=== PATIENT | female | born 1970 | race Caucasian/White ===

== ENCOUNTER → 2020-06-26 | Outpatient (CLI) | payer MEDICARE ==
[~2020-06-26] MED LIST: AZELASTINE; CEPH500 PO; CHLO25 PO; COMPAZINE10 MG PO; FAMO20 PO; MOTION RELIEF25 MG PO; ONDA4ODT MM; OXYC5 PO; PHENERGAN25 MG PR; POTA10T PO; RANI150EL PO; Roxicodone5 MG PO; ZYRTEC10 MG PO
[2020-06-27 00:32] LABS: Adenovirus F 40/41 Not Detected (NOT DETECT); Astrovirus Not Detected (NOT DETECT); Campylobacter Sp Not Detected (NOT DETECT); Cryptosporidium Not Detected (NOT DETECT); Cyclospora Cayetanensis Not Detected (NOT DETECT); E. Coli O157 Not Detected (NOT DETECT); Entamoeba Histolytica Not Detected (NOT DETECT); Enteroaggregative E. coli-EAEC Not Detected (NOT DETECT); Enteropathogenic E. coli-EPEC Not Detected (NOT DETECT); Enterotoxigenic E. coli-ETEC Not Detected (NOT DETECT); Giardia Lamblia Not Detected (NOT DETECT); Norovirus GI/GII Not Detected (NOT DETECT); Plesiomonas Shigelloides Not Detected (NOT DETECT); Rotavirus A Not Detected (NOT DETECT); Salmonella Sp Not Detected (NOT DETECT); Sapovirus Not Detected (NOT DETECT); Shiga Toxin-prod E. coli-STEC Not Detected (NOT DETECT); Shigella/Enteroin E. coli-EIEC Not Detected (NOT DETECT); Vibrio Cholerae Not Detected (NOT DETECT); Vibrio Sp Not Detected (NOT DETECT); Yersinia Enterocolitica Not Detected (NOT DETECT)
== END | disposition home or self-care (01) ==
LOC: LAB 09:50 → LAB SHORT 09:50 → LAB FUT 06-24 17:15
PROVIDERS: Family Medicine
DX: R11.2 Nausea with vomiting, unspecified (principal); R19.7 Diarrhea, unspecified
CPT/HCPCS: 0097U

== ENCOUNTER 2020-07-17 18:38 | Inpatient (IN) | payer MEDICARE, OTHER ==
[~2020-07-17] VITALS: Ht 175.3 cm; Wt 68.0 kg
[~2020-07-17 18:38] MED LIST changes: -AZELASTINE; -FAMO20 PO; -MOTION RELIEF25 MG PO; -ONDA4ODT MM; -OXYC5 PO; -PHENERGAN25 MG PR; -POTA10T PO; -RANI150EL PO; -ZYRTEC10 MG PO
[2020-07-17 19:45] LABS: Alanine Aminotransfer (ALT/SGP 44 U/L (12-78); Albumin, Blood 3.6 g/dL (3.4-5.0); Albumin/Globulin Ratio 0.7 (0.8-1.8); Alk Phos 94 U/L (50-136); Anion Gap 12 mmol/L (6-16); Aspartate Aminotrans (AST/SGOT 68 U/L (12-37); Bilirubin, Total 1.2 mg/dL (0.1-1.0); Blood Urea Nitrogen 12 mg/dL (8-24); Bun/Creatinine Ratio 30.5 (12.0-20.0); CO2, Blood 29 mmol/L (21-32); Calcium, Blood 9.7 mg/dL (8.5-10.1); Chloride, Blood 96 mmol/L (98-108); Creatinine, Blood 0.39 mg/dL (0.40-1.00); Globulin, Blood 5.1 g/dL (2.2-4.0); Glomerular Filtration Rate >60 (60-); Glucose, Blood 155 mg/dL (70-99); Potassium, Blood 3.1 mmol/L (3.5-5.5); Sodium, Blood 137 mmol/L (136-145); Total Protein, Blood 8.7 g/dL (6.4-8.2)
[2020-07-17 19:47] LABS: Magnesium, Blood 2.1 mg/dL (1.6-2.4); Phosphorus, Blood 2.5 mg/dL (2.5-4.9)
[2020-07-17 20:00] LABS: BASOPHILS ABSOLUTE AUTO 0.05 K/mm3 (0.00-0.23); BASOPHILS PERCENT AUTO 1 % (0-2); EOSINOPHILS PERCENT AUTO 1 % (0-6); Hematocrit 42.6 % (33.0-51.0); Hemoglobin 14.4 g/dL (11.5-16.0); IMMATURE GRAN ABSOLUTE AUTO 0.06 K/mm3 (0.00-0.10); IMMATURE GRAN PERCENT AUTO 1 % (0-1); LYMPHOCYTES ABSOLUTE AUTO 2.47 K/mm3 (0.84-5.20); LYMPHOCYTES PERCENT AUTO 23 % (21-46); MONOCYTES ABSOLUTE AUTO 0.93 K/mm3 (0.16-1.47); MONOCYTES PERCENT AUTO 9 % (4-13); Mean Corpuscular HGB 33.5 pg (26.0-34.0); Mean Corpuscular HGB Conc 33.8 g/dL (31.5-36.5); Mean Corpuscular Volume 99 fL (80-100); Mean Platelet Volume 12.5 fL (9.1-12.4); NEUTROPHILS ABSOLUTE AUTO 7.11 K/mm3 (1.96-9.15); NEUTROPHILS PERCENT AUTO 66 % (41-73); NRBC ABSOLUTE 0.02 K/mm3 (0.00-0.02); NRBC Auto 0.2 /100 WBC (0.0-0.2); Platelet Count 364 K/mm3 (150-400); RDW Coefficient Variation 13.4 % (11.7-14.2); RDW Standard Deviation 48.7 fL (35.1-46.3); White Blood Cell Count 10.72 K/mm3 (4.00-11.30)
[2020-07-17 21:09] LABS: Source, Urine Clean Catch
[2020-07-17 21:16] LABS: Blood, Urine 1+ (Neg); Glucose Qualitative, Urine Neg (Neg); Ketones, Urine 3+ (Neg); Leukocyte Esterase, Urine 1+ (Neg); Nitrite, Urine Neg (Neg); Protein, Urine 2+ (Neg); Urobilinogen, Urine 3+ (Normal)
[2020-07-17 21:33] LABS: Appearance, Urine Hazy (Clear); Bilirubin, Urine 2+ (Neg); Color, Urine Amber (P-Yellow)
[2020-07-17 21:34] LABS: Amorphous Light (0-Heavy); Bacteria Many /hpf; Mucus Light (0-Heavy); Red Blood Cells, Urine 0-2 /hpf (0-2); Squamous Epithelial Cells Many /hpf (Few)
[2020-07-17] MEDS ORDERED: PHENERGAN25 MG PR (22:12)
[2020-07-17] MEDS ORDERED: RANI150EL PO (22:12)
[2020-07-18 01:14] LABS: International Normalized Ratio 1.11; Prothrombin Time Results 11.8 Sec (9.7-11.5)
--- NOTE | 2020-07-18 06:39 | NUR ---
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 Alert and Oriented times two but a very poor historian regarding health history and even the name of her significant other. Pt. states generalized aches and pains all over but, all being tolerable overnight. Yarely says no vomiting or diarrhea today, but agrees her thought processes are really messed up. Still awaiting patient void to send 2nd UA. Admission assessment partially completed due to patients poor memory.
[2020-07-18 07:14] LABS: U Amphetamine Screen Not Detected; U Barbituate Screen Not Detected; U Benzodiazapine Screen DETECTED; U Buprenorphine Screen Not Detected; U Cannabinoids Screen Not Detected; U Cocaine Screen Not Detected; U Methadone Screen Not Detected; U Methamphetamine Screen Not Detected; U Opiates Screen Not Detected; U Oxycodone Screen Not Detected; U Phencyclidine Screen Not Detected; U Propoxyphene Screen Not Detected
[2020-07-18 08:47] LABS: BASOPHILS ABSOLUTE AUTO 0.05 K/mm3 (0.00-0.23); BASOPHILS PERCENT AUTO 1 % (0-2); EOSINOPHILS ABSOLUTE AUTO 0.14 K/mm3 (0.00-0.68); EOSINOPHILS PERCENT AUTO 2 % (0-6); Hematocrit 37.9 % (33.0-51.0); Hemoglobin 12.4 g/dL (11.5-16.0); IMMATURE GRAN ABSOLUTE AUTO 0.04 K/mm3 (0.00-0.10); IMMATURE GRAN PERCENT AUTO 1 % (0-1); LYMPHOCYTES ABSOLUTE AUTO 3.48 K/mm3 (0.84-5.20); LYMPHOCYTES PERCENT AUTO 42 % (21-46); MONOCYTES ABSOLUTE AUTO 0.86 K/mm3 (0.16-1.47); MONOCYTES PERCENT AUTO 10 % (4-13); Mean Corpuscular HGB 33.3 pg (26.0-34.0); Mean Corpuscular HGB Conc 32.7 g/dL (31.5-36.5); Mean Corpuscular Volume 102 fL (80-100); Mean Platelet Volume 12.4 fL (9.1-12.4); NEUTROPHILS ABSOLUTE AUTO 3.75 K/mm3 (1.96-9.15); NEUTROPHILS PERCENT AUTO 45 % (41-73); NRBC ABSOLUTE 0.02 K/mm3 (0.00-0.02); NRBC Auto 0.2 /100 WBC (0.0-0.2); Platelet Count 299 K/mm3 (150-400); RDW Coefficient Variation 13.5 % (11.7-14.2); Red Blood Cell Count 3.72 M/mm3 (3.80-5.20); White Blood Cell Count 8.32 K/mm3 (4.00-11.30)
[2020-07-18] MEDS ORDERED: ZYRTEC10 MG PO (09:04)
[2020-07-18] MEDS ORDERED: MOTION RELIEF25 MG PO (09:05)
[2020-07-18] MEDS ORDERED: AZELASTINE (09:07)
[2020-07-18] MEDS ORDERED: OXYC5 PO (09:09)
[2020-07-18 09:10] LABS: Alanine Aminotransfer (ALT/SGP 28 U/L (12-78); Albumin, Blood 2.9 g/dL (3.4-5.0); Albumin/Globulin Ratio 0.7 (0.8-1.8); Alk Phos 77 U/L (50-136); Anion Gap 7 mmol/L (6-16); Aspartate Aminotrans (AST/SGOT 38 U/L (12-37); Bilirubin, Total 0.5 mg/dL (0.1-1.0); Blood Urea Nitrogen 9 mg/dL (8-24); Bun/Creatinine Ratio 15.6 (12.0-20.0); CO2, Blood 33 mmol/L (21-32); Calcium, Blood 8.8 mg/dL (8.5-10.1); Chloride, Blood 101 mmol/L (98-108); Creatinine, Blood 0.58 mg/dL (0.40-1.00); Globulin, Blood 4.1 g/dL (2.2-4.0); Glomerular Filtration Rate >60 (60-); Glucose, Blood 116 mg/dL (70-99); Sodium, Blood 141 mmol/L (136-145)
[2020-07-18] MEDS ORDERED: ONDA4ODT MM (09:10)
[2020-07-18] MEDS ORDERED: FAMO20 PO (09:11)
[2020-07-18] MEDS ORDERED: CHLO25 PO (09:11)
[2020-07-18] MEDS ORDERED: POTA10T PO (09:12)
[2020-07-18 09:13] LABS: Potassium, Blood 2.3 mmol/L (3.5-5.5)
[2020-07-18 10:53] LABS: Source, Urine Clean Catch
[2020-07-18 11:12] LABS: Bilirubin, Urine Neg (Neg); Blood, Urine 1+ (Neg); Glucose Qualitative, Urine Neg (Neg); Ketones, Urine 1+ (Neg); Leukocyte Esterase, Urine Neg (Neg); Nitrite, Urine Neg (Neg); Protein, Urine 2+ (Neg); Urobilinogen, Urine 2+ (Normal)
[2020-07-18 11:13] LABS: Appearance, Urine Clear (Clear); Color, Urine Yellow (P-Yellow)
[2020-07-18 11:14] LABS: Bacteria Rare /hpf; Mucus Light (0-Heavy); Red Blood Cells, Urine 0-2 /hpf (0-2); Squamous Epithelial Cells Few /hpf (Few)
--- NOTE | 2020-07-18 11:42 | NUR ---
HER BOYFRIEND IS HERE SPEAKING WITH OVER THE PHONE. I HAVE NOTIFIED OF THE PATIENT'S DIZZINESS AND HER BALANCE PROBLEM. AN MRI HEAD HAS BEEN ORDERED. WHEN SHE NEEDED TO VOID EARLIER SHE USED THE BSC INSTEAD OF WALKING INTO THE BATHROOM D/T THE DIZZINESS AND POOR BALANCE.
--- NOTE | 2020-07-18 13:33 | NUR ---
HER MRI IS DONE. SHE IS EATING HER LUNCH. HER BOYFRIEND JOSHUA IS AT BEDSIDE. IV POTASSIUM REPLACEMENT IS INFUSING SLOW TO VEIN TOLERANCE. SHE SWALLOWED HER PO POTASSIUM IN HALVES WITH APPLESAUCE. I CALLED ON HIS CELL PHONE WITH THE CONSULTATION INFO. BUT PATIENT AND JOSHUA SAY SHE HASN'T HAD DYSPHAGIA. THEY CHANGED THE TEXTURE OF HER FOOD AT HOME BECAUSE SHE KEPT VOMITING. AND SINCE SHE WAS VOMITING SO CONSISTENTLY, SHE HASN'T BEEN WEARING HER TEETH.
--- NOTE | 2020-07-18 16:55 | NUR ---
HAS DECIDED TO COBRA TRANSFER THIS PATIENT TO NEUROLOGY AT [facility] IN [place]. RAPID COVID TEST OBTAINED. DOCTOR CAME BACK A 2ND TIME TO SPEAK WITH THE PATIENT AND HER SMelvin MERRITT
--- NOTE | 2020-07-18 18:07 | NUR ---
SHE IS EATING HER DINNER. COBRA TRANSFER TO TAKE PLACE SOON. [facility] WILL BE HERE ABOUT 1820. HER PACKET IS READY AND I CALLED REPORT TO ARABELLA RN ON THE NEURO UNIT. KCL IV REPLACEMENT FINISHED. I REPORTED TO ARABELLA THAT SHE WILL NEED A FOLLOW UP POTASSIUM LEVEL AFTER A 2.3 THIS AM. HER S.O. JOSHUA IS AT BEDSIDE. THERE IS A NOTE IN THE PACKET WITH HIS NAME AND NUMBER.
--- NOTE | 2020-07-18 18:35 | NUR ---
DISCHARGED TO [facility]. HER FEW BELONGINGS WENT WITH HER S.O. BUT SHE IS WEARING HER GLASSES.
== END 2020-07-18 18:28 | disposition short-term general hospital (02) | DRG 72 ==
LOC: ER 18:38 → ERHOLD 18:39 → MEDS 18:39
PROVIDERS: Physician Assistant; ADMIT Internal Medicine
DX: G93.40 Encephalopathy, unspecified (principal); I10 Essential (primary) hypertension; G35 Multiple sclerosis; F17.210 Nicotine dependence, cigarettes, uncomplicated; E86.0 Dehydration; E87.6 Hypokalemia; I16.0 Hypertensive urgency; R13.10 Dysphagia, unspecified
CPT/HCPCS: 36415; 70450; 70551; 71045; 80053; 81001; 82140; 83690; 83735; 84100; 85025; 85610; 87086; 96361; 96365; 96366; 96367; 96372; 96375; 99285-25; A9270; A9270-GY; G0378; J0696; J1650; J2405; J3480; J7030; U0002

== ENCOUNTER → 2021-07-28 | Outpatient (CLI) | payer MEDICARE, OTHER ==
[~2021-07-28] MED LIST changes: +AZELASTINE; +FAMO20 PO; +MOTION RELIEF25 MG PO; +ONDA4ODT MM; +OXYC5 PO; +PHENERGAN25 MG PR; +POTA10T PO; +RANI150EL PO; +ZYRTEC10 MG PO
== END ==
LOC: LAB SHORT 16:20 → LAB 16:20
DX: L08.9 Local infection of the skin and subcutaneous tissue, unspecified (principal); Z88.0 Allergy status to penicillin
CPT/HCPCS: 87070; 87077; 87147; 87186; 87205

== ENCOUNTER → 2021-10-08 | Outpatient (CLI) | payer MEDICARE, OTHER ==
[2021-10-14 14:10] LABS: CHLAMYDIA BY NAA Negative (Negative); GONOCOCCUS BY NAA Negative (Negative); HPV 16 Negative (Negative); HPV 18 Negative (Negative); HPV OTHER HR TYPES Positive (Negative); TRICH VAG BY NAA Negative (Negative)
== END ==
LOC: LAB SHORT 18:17
PROVIDERS: Nurse Practitioner Family
DX: Z01.419 Encounter for gynecological examination (general) (routine) without abnormal findings (principal)
CPT/HCPCS: 87491; 87591; 87624; 87625; 87661; G0123

== ENCOUNTER → 2021-10-19 | Outpatient (CLI) | payer MEDICARE, OTHER | LOC: LAB 18:12 → LAB SHORT 18:12 | DX: Z00.00 Encounter for general adult medical examination without abnormal findings (principal); Z48.817 Encounter for surgical aftercare following surgery on the skin and subcutaneous tissue; L57.0 Actinic keratosis; L57.8 Other skin changes due to chronic exposure to nonionizing radiation; E78.2 Mixed hyperlipidemia; R53.83 Other fatigue; D53.9 Nutritional anemia, unspecified; R13.10 Dysphagia, unspecified; Z86.14 Personal history of Methicillin resistant Staphylococcus aureus infection | CPT/HCPCS: 87070; 87077; 87186; 87205 ==

== ENCOUNTER → 2023-03-29 | Outpatient (CLI) | payer MEDICARE, OTHER ==
[2023-04-01 12:08] LABS: HPV 16 Negative (Negative); HPV 18 Negative (Negative); HPV OTHER HR TYPES Positive (Negative)
== END | disposition home or self-care (01) ==
LOC: LAB SHORT 16:00 → LAB 16:00
PROVIDERS: Nurse Practitioner Family
DX: Z01.419 Encounter for gynecological examination (general) (routine) without abnormal findings (principal)
CPT/HCPCS: 87624; G0145

== ENCOUNTER → 2025-01-14 | Outpatient (CLI) | payer MEDICARE, OTHER ==
[2025-01-23 12:54] LABS: HPV GENOTYPE 16 BY TMA Not Detected; HPV GENOTYPE 18/45 BY TMA Not Detected; HPV HIGH RISK BY TMA Detected; HPV SOURCE Cervical; HPVG SOURCE Cervical
== END ==
LOC: LAB SHORT 17:23 → LAB 17:23
PROVIDERS: Family Medicine
DX: Z12.4 Encounter for screening for malignant neoplasm of cervix (principal)
CPT/HCPCS: 87624; 87625; G0123